=== PATIENT | male | born 1985 | race American Indian/Alaskan Native ===

== ENCOUNTER 2016-09-29 06:11 | Emergency (ER) | payer OTHER ==
[2016-09-29 06:39] VITALS: RESP 18
[2016-09-29] MEDS ORDERED: Naproxen 550 mg Tab PO STA (07:27)
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
[2016-09-29 09:03] VITALS: BP 123/82; PULSE 76; TEMP 98
--- NOTE | 2016-09-29 09:43 | RAD ---
PROCEDURE: Cervical Spine Radiographs. HISTORY: Pain. COMPARISON: None. FINDINGS: BONES: Straightening of the cervical spine which could be due to muscle spasm. . No fracture. Dens Intact. DISC SPACES: Normal. SOFT TISSUES: Normal. No prevertebral soft tissue swelling. OTHER FINDINGS: None. IMPRESSION: No radiographic evidence of acute fracture or subluxation. Straightening of the cervical spine which could be due to muscle spasm.
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
[2016-10-03 17:42] VITALS: O2SAT 98
== END 2016-09-29 09:25 | disposition home or self-care (01) ==
LOC: C.ER 06:11
DX: S13.4XXA Sprain of ligaments of cervical spine, initial encounter (principal); S63.501A Unspecified sprain of right wrist, initial encounter; V43.52XA Car driver injured in collision with other type car in traffic accident, initial encounter; Y92.410 Unspecified street and highway as the place of occurrence of the external cause